=== PATIENT | female | born 1995 | race Asian ===

== ENCOUNTER → 2017-04-16 | Outpatient (CLI) | payer OTHER ==
--- NOTE | 2017-04-16 15:13 | DIAGNOSTIC IMAGING REPORT ---
R KNEE 4 OR MORE CLINICAL HISTORY: RIGHT KNEE PAIN AND SWELLING pain. Edema. COMPARISON: None. DISCUSSION: Findings consistent anterior cruciate repair. Trace spaces are well-preserved. No significant joint effusion. No fracture or dislocation. There is no evidence for soft tissue swelling. IMPRESSION: Operative changes of a prior anterior cruciate ligament repair. Otherwise negative study. The above report was generated using voice recognition software. It may contain grammatical, syntax or spelling errors. Electronically signed by: Jan Reyes M.D. 04/16/2017 3:11 PM Dictated Date/Time: 04/16/2017 3:11 PM
== END | disposition home or self-care (01) ==
LOC: C.RDSM 14:55
PROVIDERS: ATTEND Family Medicine
DX: M25.561 Pain in right knee (principal)

== ENCOUNTER → 2017-04-20 | Outpatient (CLI) | payer OTHER ==
--- NOTE | 2017-04-20 21:15 | DIAGNOSTIC IMAGING REPORT ---
R LOWER EXT JOINT WITHOUT CLINICAL HISTORY: RT KNEE PAIN pain TECHNIQUE: MRI multi axial acquisition COMPARISON STUDY: None FINDINGS: Findings consistent with anterior cruciate ligament repair. The anterior graft as well as posterior cruciate ligament. Intact. There is moderate bone marrow edema of the mid anterior femoral bone marrow edema to the patellofemoral articulation. 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 The infrapatellar ligament is intact. Evaluation of menisci shows the medial meniscus to be unremarkable in overall signal character and configuration. Lateral meniscus shows evidence for a focal vertical tear of the mid meniscal apex. Medial and lateral collateral ligament structures are intact. IMPRESSION: 1. Focal vertical tear apex mid lateral meniscus 2. Prior anterior cruciate ligament repair which is intact. 3. 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 4. Bone contusion deep to the mid patellofemoral articulating surface. The above report was generated using voice recognition software. It may contain grammatical, syntax or spelling errors. Electronically signed by: Jan Reyes M.D. 04/20/2017 9:14 PM Dictated Date/Time: 04/20/2017 8:58 PM
== END | disposition home or self-care (01) ==
LOC: C.MRI 19:37
PROVIDERS: ATTEND Family Medicine
DX: M25.561 Pain in right knee (principal)